=== PATIENT | female | born 1975 | race Two or more races ===

== ENCOUNTER 2018-08-25 12:23 | Emergency (ER) | payer MEDICAID ==
[~2018-08-25] VITALS: Ht 160 cm; Wt 67.1 kg
[~2018-08-25 12:23] MED LIST: BUSP15TA52; SERT-135
[2018-08-25 14:35] VITALS: BP 110/61
== END 2018-08-25 15:11 | disposition home or self-care (01) ==
LOC: ER 12:23
DX: F41.9 Anxiety disorder, unspecified (principal); M54.5 Low back pain; G89.29 Other chronic pain; Z79.899 Other long term (current) drug therapy

== ENCOUNTER 2021-01-17 06:05 | Emergency (ER) | payer MEDICAID ==
[~2021-01-17] VITALS: Ht 157.5 cm; Wt 68.0 kg
[2021-01-17 06:05] VITALS: BP 116/74
[~2021-01-17 06:05] MED LIST changes: -SERT-135; +SERT100T
== END 2021-01-17 07:29 | disposition home or self-care (01) ==
LOC: ER 06:05
DX: J06.9 Acute upper respiratory infection, unspecified (principal); F41.9 Anxiety disorder, unspecified
CPT/HCPCS: 71045